=== PATIENT | female | born 1970 | race Caucasian/White ===

== ENCOUNTER 2023-06-04 11:53 | Emergency (ER) | payer SELFPAY ==
[2023-06-04 12:04] VITALS: BP 174/103; PULSE 73; RESP 18; TEMP 36.9; O2SAT 98; BMI 30.7
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
--- NOTE | 2023-06-04 13:40 | CRLHL7_ITS ---
For Patients: As a result of the Century Cures Act, medical imaging exams and procedure reports are released immediately into your electronic medical record. You may view this report before your referring provider. If you have questions, please contact your health care provider. Indication: Neuropathy, hyperesthesia Technique: Multiplanar, multisequence MRI of the brain obtained without contrast. Comparison: CT head report 05/28/2023 Findings: The ventricles and cortical sulci appear within normal limits for age. No hydrocephalus or herniation. No acute/subacute ischemia, intracranial hemorrhage or abnormal extra-axial fluid collection. Multiple small foci of FLAIR hyperintensity are noted throughout the supratentorial white matter, predominating thought the frontal greater than parietal regions. Midline structures are unremarkable. Major expected intracranial flow voids are visualized. Bone marrow signal is unremarkable. No suspicious findings in the regional soft tissues. Paranasal sinuses and mastoid air cells have a normal signal. Included orbits are unremarkable. Impression: 1. No evidence of acute intracranial abnormality. 2. Scattered small foci of FLAIR signal abnormality are noted throughout the supratentorial white matter. These are nonspecific, but can be seen in the setting of migraine headaches, previous trauma, mild chronic microangiopathy, or other remote insult. 3. Included views of the upper cervical spine demonstrate at least moderate spondylitic spinal canal narrowing at C3-4. Dictated by Dawna Knutson MD @ 06/04/2023 5:41:27 PM (Electronically Signed)
--- NOTE | 2023-06-04 13:40 | CRLHL7_ITS ---
For Patients: As a result of the Century Cures Act, medical imaging exams and procedure reports are released immediately into your electronic medical record. You may view this report before your referring provider. If you have questions, please contact your health care provider. Indication: Neuropathy and hyperesthesia Technique: Multiplanar, multisequence MRI of the cervical spine obtained without contrast. Comparison: Earlier same-day MRI brain Findings: Straightening of the cervical lordosis. Grade 1 retrolisthesis at C5-6. No acute osseus abnormality. Unremarkable bone marrow signal.. Confluent abnormal T2/STIR hyperintense cord signal centered at the C3-4 level, where there is moderate-severe stenosis and mild cord compression, with cord signal abnormality extending cranially to the C2-3 disc space, and caudally to the C5-6 disc space. No obvious cord expansion. Remaining cord appears normal in course and caliber. Prevertebral and paraspinal soft tissues are unremarkable. C2-C3: Posterior disc bulge with right subarticular disc-osteophyte complex. No significant neural foramina or spinal canal stenosis. C3-C4: Posterior disc-osteophyte complex, uncovertebral arthropathy. Moderately severe spinal canal stenosis. Mild-moderate right, moderate left neural foraminal stenosis. C4-C5: No significant neuroforaminal or spinal canal stenosis. C5-C6: Posterior disc-osteophyte complex, uncovertebral arthropathy. Moderate spinal canal stenosis. Severe left neural foraminal stenosis with left C6 nerve root impingement. No right neural foraminal stenosis. C6-C7, C7-T1: No significant neuroforaminal or spinal canal stenosis. Impression: 1. Confluent abnormal cord signal centered at C3-4, where there is moderately severe spinal canal stenosis and mild cord compression. Craniocaudal extension of cord signal abnormality spanning C2-3 through C5-6. 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 Clinical correlation advised. 2. At C3-4, moderately severe spinal canal stenosis, mild-moderate right/moderate left neural foraminal stenosis. 3. At C5-6, moderate spinal canal stenosis and severe left neural foraminal stenosis with left C6 nerve root impingement. Dictated by Dawna Knutson MD @ 06/04/2023 5:58:43 PM (Electronically Signed)
[2023-06-04 14:10] VITALS: BP 149/91; PULSE 70; RESP 16; O2SAT 100
--- NOTE | 2023-06-04 15:05 | ED.NURSE ---
waiting in room for MRI around 1630 and filled out the checklist
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
[2023-06-04 16:30] VITALS: BP 126/70; PULSE 65; RESP 16; O2SAT 98
[2023-06-04 18:39] VITALS: BP 131/70; PULSE 67; RESP 16; O2SAT 99
--- NOTE | 2023-06-04 18:53 | ED.NURSE ---
Dr. Shields is in the room to talk with patient.
== END 2023-06-04 20:23 | disposition home or self-care (01) ==
PROVIDERS: Emergency Provider Family Medicine
DX: G95.9 Disease of spinal cord, unspecified (principal)
CPT/HCPCS: 70551; 72141; 99284